=== PATIENT | male | born 1990 | race Caucasian/White ===

== ENCOUNTER 2020-08-19 22:31 | Observation (INO) | payer OTHER ==
[~2020-08-19] VITALS: Ht 177.8 cm; Wt 83.5 kg
[~2020-08-19 22:31] MED LIST: Benadryl 50 mg50 MG PO; Cephalexin250 MG/5 M PO; METPRE4DP PO
[2020-08-19 22:42] LABS: BASOPHILS ABSOLUTE AUTO 0.02 K/mm3 (0.00-0.23); BASOPHILS PERCENT AUTO 0 % (0-2); EOSINOPHILS ABSOLUTE AUTO 0.05 K/mm3 (0.00-0.68); EOSINOPHILS PERCENT AUTO 1 % (0-6); Hematocrit 41.9 % (37.0-53.0); Hemoglobin 14.3 g/dL (13.5-17.5); IMMATURE GRAN ABSOLUTE AUTO 0.01 K/mm3 (0.00-0.10); IMMATURE GRAN PERCENT AUTO 0 % (0-1); LYMPHOCYTES PERCENT AUTO 24 % (21-46); MONOCYTES ABSOLUTE AUTO 0.34 K/mm3 (0.16-1.47); MONOCYTES PERCENT AUTO 5 % (4-13); Mean Corpuscular HGB 31.8 pg (26.0-34.0); Mean Corpuscular HGB Conc 34.1 g/dL (31.5-36.5); Mean Corpuscular Volume 93 fL (80-100); Mean Platelet Volume 8.8 fL (9.1-12.4); NEUTROPHILS ABSOLUTE AUTO 4.36 K/mm3 (1.96-9.15); NEUTROPHILS PERCENT AUTO 69 % (41-73); Platelet Count 214 K/mm3 (150-400); RDW Coefficient Variation 11.9 % (11.7-14.2); RDW Standard Deviation 40.9 fL (35.1-46.3); Red Blood Cell Count 4.49 M/mm3 (4.30-5.90); White Blood Cell Count 6.28 K/mm3 (4.00-11.30)
[2020-08-19 22:52] LABS: PCO2 Arterial 43.4 mmHg (35-45); PO2 Arterial 79.4 mmHg (80-100)
[2020-08-19 23:01] LABS: Alanine Aminotransfer (ALT/SGP 37 U/L (12-78); Albumin, Blood 3.9 g/dL (3.4-5.0); Albumin/Globulin Ratio 1.1 (0.8-1.8); Alk Phos 62 U/L (50-136); Anion Gap 6 mmol/L (6-16); Aspartate Aminotrans (AST/SGOT 35 U/L (12-37); Bilirubin, Total 0.3 mg/dL (0.1-1.0); Blood Urea Nitrogen 9 mg/dL (8-24); Bun/Creatinine Ratio 9.6 (12.0-20.0); CO2, Blood 28 mmol/L (21-32); Calcium, Blood 8.9 mg/dL (8.5-10.1); Chloride, Blood 110 mmol/L (98-108); Creatinine, Blood 0.94 mg/dL (0.60-1.20); Ethanol (Alcohol), Blood, Med 140 mg/dL; Globulin, Blood 3.5 g/dL (2.2-4.0); Glomerular Filtration Rate >60 (60-); Glucose, Blood 90 mg/dL (70-99); Potassium, Blood 4.1 mmol/L (3.5-5.5); Salicylate <1.7 mg/dL (2.8-20.0); Sodium, Blood 144 mmol/L (136-145); Total Protein, Blood 7.4 g/dL (6.4-8.2)
[2020-08-19 23:05] LABS: Acetaminophen, Random <2.0 ug/mL (10.0-30.0)
[2020-08-20] MEDS ORDERED: ESCI10 PO (00:11)
[2020-08-20] MEDS ORDERED: CLON1 PO (00:12)
--- NOTE | 2020-08-20 00:43 | NUR ---
ARRIVAL TO ICU PT ARRIVES FROM ED TO ICU AT 0000. HE IS AWAKE, A/O TO SELF AND PLACE, BUT IS DROWSY AND SLOW TO RESPOND. SPEECH IS SLURRED. PT ATTEMPTED TO STAND FROM ED STRETCHER AND ALMOST FELL. PT HAD VERY SLURRED SPEECH WHEN ASKING QUESTIONS ABOUT HIS MEDICAL HISTORY. DURING SUICIDE ASSESSMENT, PT STATED HE JUST WANTED TO FORGET SOME THINGS THAT ARE GOING ON IN HIS LIFE RIGHT NOW. HE DENIED BEING SUICIDAL AND LAUGHINGLY STATED HE WANTS TO LEAVE. INFORMED PT THAT HE IS ON A 2 MD HOLD AND IS REQUIRED TO STAY HERE; IF HE ATTEMPTS TO LEAVE, THE FIBER ANALYST WILL BE CALLED. PT DISPLAYED UNDERSTANDING AND ROLLED OVER ONTO SIDE AND QUICKLY FELL ASLEEP. MODERATE SUICIDE PRECUATIONS. BEING MONITORED BY CAMERA. MIV LR INFUSING AT 125 ML/HR PER ORDER. PT IN BLUE PAPER SCRUBS. WILL CONTINUE TO MONITOR.
--- NOTE | 2020-08-20 03:36 | NUR ---
REASSESSMENT PT SLEEPING COMFORTABLY AT THIS TIME. HE WAS ABLE TO STAND AND AMBULATE TO TOILET IN ROOM. HAD BOWEL MOVEMENT AND AMBULATED BACK TO BED. HE IS CALM AND COOPERATIVE WHEN AWAKE. MIV LR CONTINUES TO INFUSE. WILL CONTINUE TO MONITOR. VSS.
[2020-08-20 03:51] LABS: Anion Gap 6 mmol/L (6-16); Blood Urea Nitrogen 8 mg/dL (8-24); Bun/Creatinine Ratio 9.1 (12.0-20.0); CO2, Blood 26 mmol/L (21-32); Calcium, Blood 7.9 mg/dL (8.5-10.1); Chloride, Blood 112 mmol/L (98-108); Creatinine, Blood 0.88 mg/dL (0.60-1.20); Glomerular Filtration Rate >60 (60-); Glucose, Blood 79 mg/dL (70-99); Sodium, Blood 144 mmol/L (136-145)
--- NOTE | 2020-08-20 05:57 | NUR ---
SHIFT SUMMARY PT ADMITTED TO ICU AT 0000. SINCE THEN, HE SLEPT ENTIRE SHIFT BUT DID STAND AND AMBULATE TO TOILET X 1 FOR BM AND VOIDING. PT HAS BEEN COOPERATIVE AND COMPLIANT. LR INFUSING AT 125 ML/HR PER ORDER. AFEBRILE. NSR, HR 50-60S. BP WNL. REMAINS ON CAMERA MONITORING FOR MODERATE SUICIDE RISK. WILL GIVE BEDSIDE, HANDOFF REPORT TO DAY RN.
--- NOTE | 2020-08-20 07:13 | NUR ---
Neel is calm, appears to be a bit sleepy, but answers questions appropriately and engages in conversation. States that he doesn't really have any desires to harm himself. States that he just wants to get out of the hosptial and go home. No apparent anxiety or distress. Explained that the plan today would be for him to have a visit from Dr. Moody, the psychiatrist, and from there make a plan for treatment.
--- NOTE | 2020-08-20 07:43 | NUR ---
Dr. Guajardo here to see the patient. Plan is for the pt to be evaluated by Dr. Moody today.
--- NOTE | 2020-08-20 09:53 | NUR ---
Iman Child here to see the patient.
--- NOTE | 2020-08-20 10:37 | NUR ---
Call from Luz at [facility]; pt was willing to talk to the patient, so the call was transferred into the room.
--- NOTE | 2020-08-20 11:13 | NUR ---
Neel awakens easily to gentle quiet conversation, but does not initiate any conversation while awake. Coherent conversation with calm, appropriate answers. Otherwise just keeps his eyes closed and appears to be sleeping in a softly lit room. Did not eat any of his breakfast this morning. Safety plan was reviewed with Iman Child; still waiting on Dr. Moody to see the patient this afternoon.
--- NOTE | 2020-08-20 13:00 | NUR ---
Safety Plan interview 09 in ICU10. Pt very guarded initially but shared information later in interview. Pt is vague regarding occurrences of events leading to taking "2 Xanax and I think a sleeping pill". Pt assumes his father called /EMS, but does not have recollection. Pt had drunk several beers. He has appointment with [facility] psychiatrist Sep.14. He sees Dr. Meyer, and "finally came clean with him about thinking about suicide". Pt prescribed antidepressant 2 weeks ago that gave him hives, but continued chelsie them. Changed to Lexapro 1 week ago--reports he has been taking them. Pt does have nightmares and reports PTSD--reports Prozasin helped with nigmares. Pt has 4 DUIs and and assault charge that he goes to court for sentencing September 21. "Looking at 25-54 months in jail". Left 4 months ago-both lived in [place]. he has 5 year old son. 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 Positive for loss of interest in activities, poor sleep, poor appetite ('did not eat for 6 days, just small bites-didnt feel like it"), no enregy, vague response on thoughts of suicide, but affirmed when discussing his :"coming clean" with Mitch. He alluded to "all the stuff going on" was what ma"may" have led him to taking extra Xanax yesterday. He conveys unrealistic thinking that he just "wants to go home". Pt has sought help to with [employer] worker to go to [facility] in [place], a [facility] treatment center he reports. Due to casual demeanor regarding OD, and conveying all will be well if he goes home, ADMINISTRATIVE REPRESENTATIVE and Coordinator informed to be alert for any patient movement outside of room. Mentioned to patient the availability of dual diagnosis treatment, and explained signs/symptms of depression, combined with history of drinking since adolescense. Pt. may have minimized amount he reported drinking, and RN informed for withdrawal symptom watch. Pt was not interested in details of completing Safetu Plan and RN and Clinical Coordinator informed that if patient is to be dc'd home, pt must state his specific plan for safety. Pt on day 1 of involuntary hold today. Pt denies previous suicide attempts. Iman Child M.Ed., [facility]
--- NOTE | 2020-08-20 13:12 | NUR ---
The pt is alert, more awake and ate 25% of his lunch. Requested use of bathroom and was assisted by BLANCHE Cohen.
--- NOTE | 2020-08-20 14:14 | NUR ---
Neel continues to display little to no interest in eating, watching TV or anything other than lying in bed with his eyes closed. When I checked his IV site and temperature at this time, he asked when the psychiatrist would be in to see him. I explained that Dr. Moody usually comes in the afternoon, so probably at any time now. He said "OK" and closed his eyes again, lying on his side.
--- NOTE | 2020-08-20 14:39 | NUR ---
Dr. Moody here to see the patient.
[2020-08-20] MEDS ORDERED: TRAZ50 PO (15:43)
--- NOTE | 2020-08-20 15:59 | NUR ---
Reviewed discharge instructions with the patient. IV removed. The pt is pleasantly conversant, and smiles occasionally during conversation. He states that he is going home with his Dad, where he is staying right now, and that he feels like he is safe there. States he has an appointment with Dr. Meyer in 6 days.
--- NOTE | 2020-08-20 16:06 | NUR ---
Escorted pt out to the admitting area to check out for discharge home.
== END 2020-08-20 16:07 | disposition home or self-care (01) ==
LOC: ER 22:31 → ICUW 22:32
PROVIDERS: Emergency Medicine; ADMIT Internal Medicine
DX: T44.6X2A Poisoning by alpha-adrenoreceptor antagonists, intentional self-harm, initial encounter (principal); T43.222A Poisoning by selective serotonin reuptake inhibitors, intentional self-harm, initial encounter; G92 Toxic encephalopathy; F32.9 Major depressive disorder, single episode, unspecified; F43.10 Post-traumatic stress disorder, unspecified; F10.10 Alcohol abuse, uncomplicated; F12.10 Cannabis abuse, uncomplicated; Z88.0 Allergy status to penicillin; Z88.8 Allergy status to other drugs, medicaments and biological substances; Z23 Encounter for immunization; Z79.899 Other long term (current) drug therapy
CPT/HCPCS: 36415; 36600; 80048; 80053; 82803; 82947; 85025; 93005; 93010; 96360; 99285-25; G0378; G0480; J7030; J7120

== ENCOUNTER 2020-08-21 22:15 | Observation (INO) | payer OTHER ==
[~2020-08-21] VITALS: Ht 177.8 cm; Wt 86.2 kg
[~2020-08-21 22:15] MED LIST changes: +CLON1 PO; +ESCI10 PO; +TRAZ50 PO
[2020-08-22 12:37] LABS: BASOPHILS ABSOLUTE AUTO 0.02 K/mm3 (0.00-0.23); BASOPHILS PERCENT AUTO 0 % (0-2); EOSINOPHILS ABSOLUTE AUTO 0.18 K/mm3 (0.00-0.68); EOSINOPHILS PERCENT AUTO 3 % (0-6); Hematocrit 44.5 % (37.0-53.0); Hemoglobin 15.4 g/dL (13.5-17.5); IMMATURE GRAN ABSOLUTE AUTO 0.01 K/mm3 (0.00-0.10); IMMATURE GRAN PERCENT AUTO 0 % (0-1); LYMPHOCYTES PERCENT AUTO 28 % (21-46); MONOCYTES ABSOLUTE AUTO 0.36 K/mm3 (0.16-1.47); MONOCYTES PERCENT AUTO 6 % (4-13); Mean Corpuscular HGB 32.2 pg (26.0-34.0); Mean Corpuscular HGB Conc 34.6 g/dL (31.5-36.5); Mean Corpuscular Volume 93 fL (80-100); Mean Platelet Volume 8.8 fL (9.1-12.4); NEUTROPHILS ABSOLUTE AUTO 3.51 K/mm3 (1.96-9.15); NEUTROPHILS PERCENT AUTO 62 % (41-73); Platelet Count 208 K/mm3 (150-400); RDW Coefficient Variation 11.9 % (11.7-14.2); RDW Standard Deviation 40.9 fL (35.1-46.3); Red Blood Cell Count 4.78 M/mm3 (4.30-5.90); White Blood Cell Count 5.68 K/mm3 (4.00-11.30)
[2020-08-22 12:57] LABS: Alanine Aminotransfer (ALT/SGP 34 U/L (12-78); Albumin, Blood 3.9 g/dL (3.4-5.0); Albumin/Globulin Ratio 1.1 (0.8-1.8); Alk Phos 66 U/L (50-136); Anion Gap 1 mmol/L (6-16); Aspartate Aminotrans (AST/SGOT 36 U/L (12-37); Bilirubin, Total 0.6 mg/dL (0.1-1.0); Blood Urea Nitrogen 14 mg/dL (8-24); Bun/Creatinine Ratio 12.2 (12.0-20.0); CO2, Blood 31 mmol/L (21-32); Calcium, Blood 9.2 mg/dL (8.5-10.1); Chloride, Blood 109 mmol/L (98-108); Creatinine, Blood 1.15 mg/dL (0.60-1.20); Globulin, Blood 3.5 g/dL (2.2-4.0); Glomerular Filtration Rate >60 (60-); Glucose, Blood 78 mg/dL (70-99); Potassium, Blood 4.4 mmol/L (3.5-5.5); Sodium, Blood 141 mmol/L (136-145); Total Protein, Blood 7.4 g/dL (6.4-8.2)
[2020-08-22 12:58] LABS: Acetaminophen, Random <2.0 ug/mL (10.0-30.0)
[2020-08-22 21:59] LABS: Source, Urine Clean Catch
[2020-08-22 22:06] LABS: Bilirubin, Urine Neg (Neg); Blood, Urine Neg (Neg); Glucose Qualitative, Urine Neg (Neg); Ketones, Urine Neg (Neg); Leukocyte Esterase, Urine Neg (Neg); Nitrite, Urine Neg (Neg); Protein, Urine Neg (Neg); Specific Gravity, Urine 1.015 (1.003-1.022); Urobilinogen, Urine 1+ (Normal)
[2020-08-22 22:11] LABS: Appearance, Urine Clear (Clear); Color, Urine Yellow (P-Yellow)
[2020-08-22 22:17] LABS: U Amphetamine Screen Not Detected; U Barbituate Screen Not Detected; U Benzodiazapine Screen DETECTED; U Buprenorphine Screen Not Detected; U Cannabinoids Screen DETECTED; U Cocaine Screen Not Detected; U Methadone Screen Not Detected; U Methamphetamine Screen Not Detected; U Opiates Screen Not Detected; U Oxycodone Screen Not Detected; U Phencyclidine Screen Not Detected; U Propoxyphene Screen Not Detected
[2020-08-24] MEDS ORDERED: ZOLP10 PO (13:05)
[2020-08-24] MEDS ORDERED: PRAZ1 PO (13:06)
[2020-08-24] MEDS ORDERED: CLON.5 PO (13:06)
[2020-08-24] MEDS ORDERED: SERT50 (13:06)
[2020-08-24 14:14] LABS: Influenza A, PCR Negative (NEGATIVE); Influenza B, PCR Negative (NEGATIVE); Resp Syncytial Virus, PCR Negative (NEGATIVE); SARS-Cov-2 (COVID-19) PCR, MMC Negative (NEGATIVE)
== END 2020-08-24 17:40 ==
LOC: ER 22:15 → EOR 22:16
PROVIDERS: Emergency Medicine; ADMIT Emergency Medicine
DX: R45.851 Suicidal ideations (principal); Z88.0 Allergy status to penicillin
CPT/HCPCS: 0241U; 36415; 80053; 81003; 85025; 96372; 99285; G0378; G0480; J1200; J1630; Q3014

== ENCOUNTER 2020-09-02 06:19 | Emergency (ER) | payer OTHER ==
[~2020-09-02] VITALS: Ht 177.8 cm; Wt 88.5 kg
[~2020-09-02 06:19] MED LIST changes: +CLON.5 PO; +PRAZ1 PO; +SERT50; +ZOLP10 PO
[2020-09-02] MEDS ORDERED: Seroquel200 MG PO (07:10)
[2020-09-02] MEDS ORDERED: PROP10 PO (07:10)
[2020-09-02] MEDS ORDERED: Neurontin 100100 MG PO (07:10)
[2020-09-02] MEDS ORDERED: Lamictal25 MG PO (07:10)
[2020-09-02] MEDS ORDERED: PRAZ1 PO (07:10)
== END 2020-09-02 07:42 | disposition home or self-care (01) ==
LOC: ER 06:19
DX: F32.9 Major depressive disorder, single episode, unspecified (principal); F43.10 Post-traumatic stress disorder, unspecified; F41.9 Anxiety disorder, unspecified; Z76.0 Encounter for issue of repeat prescription; Z88.0 Allergy status to penicillin; Z79.899 Other long term (current) drug therapy; F17.220 Nicotine dependence, chewing tobacco, uncomplicated
CPT/HCPCS: 99283

== ENCOUNTER 2020-09-10 03:34 | Emergency (ER) | payer OTHER ==
[~2020-09-10] VITALS: Ht 177.8 cm; Wt 83.9 kg
[~2020-09-10 03:34] MED LIST changes: +Lamictal25 MG PO; +Neurontin 100100 MG PO; +PROP10 PO; +Seroquel200 MG PO
== END 2020-09-10 04:56 | disposition home or self-care (01) ==
LOC: ER 03:34
DX: F45.8 Other somatoform disorders (principal); F41.9 Anxiety disorder, unspecified; F32.9 Major depressive disorder, single episode, unspecified; F17.220 Nicotine dependence, chewing tobacco, uncomplicated; Z88.0 Allergy status to penicillin; Z79.899 Other long term (current) drug therapy
CPT/HCPCS: 71046; 93005; 93010; 99283-25

== ENCOUNTER 2023-04-19 16:06 | Emergency (ER) | payer OTHER ==
[~2023-04-19] VITALS: Ht 177.8 cm; Wt 88.5 kg
[2023-04-19 16:13] VITALS: BP 123/79
[2023-04-19 18:08] LABS: BASOPHILS ABSOLUTE AUTO 0.03 K/mm3 (0.00-0.23); BASOPHILS PERCENT AUTO 0 % (0-2); EOSINOPHILS ABSOLUTE AUTO 0.09 K/mm3 (0.00-0.68); EOSINOPHILS PERCENT AUTO 1 % (0-6); Hematocrit 45.1 % (37.0-53.0); IMMATURE GRAN ABSOLUTE AUTO 0.03 K/mm3 (0.00-0.10); IMMATURE GRAN PERCENT AUTO 0 % (0-1); LYMPHOCYTES ABSOLUTE AUTO 0.52 K/mm3 (0.84-5.20); LYMPHOCYTES PERCENT AUTO 5 % (21-46); MONOCYTES ABSOLUTE AUTO 0.53 K/mm3 (0.16-1.47); MONOCYTES PERCENT AUTO 5 % (4-13); Mean Corpuscular HGB 31.9 pg (26.0-34.0); Mean Corpuscular HGB Conc 35.5 g/dL (31.5-36.5); Mean Corpuscular Volume 90 fL (80-100); Mean Platelet Volume 8.7 fL (9.1-12.4); NEUTROPHILS ABSOLUTE AUTO 9.39 K/mm3 (1.96-9.15); NEUTROPHILS PERCENT AUTO 89 % (41-73); Platelet Count 227 K/mm3 (150-400); RDW Coefficient Variation 12.8 % (11.7-14.2); RDW Standard Deviation 41.8 fL (35.1-46.3); Red Blood Cell Count 5.01 M/mm3 (4.30-5.90); White Blood Cell Count 10.59 K/mm3 (4.00-11.30)
[2023-04-19 18:56] LABS: Albumin, Blood 4.1 g/dL (3.4-5.0); Albumin/Globulin Ratio 1.2 (0.8-1.8); Bilirubin, Total 0.7 mg/dL (0.1-1.0); Bun/Creatinine Ratio 24.3 (12.0-20.0); Creatinine, Blood 0.82 mg/dL (0.60-1.20); Globulin, Blood 3.5 g/dL (2.2-4.0); Potassium, Blood 3.9 mmol/L (3.5-5.5); Total Protein, Blood 7.6 g/dL (6.4-8.2)
[2023-04-19] MEDS ORDERED: ONDA4 PO (19:32)
== END 2023-04-19 19:40 | disposition home or self-care (01) ==
LOC: ER 16:06
PROVIDERS: Student in an Organized Health Care Education/Training Program
DX: S06.0X0A Concussion without loss of consciousness, initial encounter (principal); R10.9 Unspecified abdominal pain; V86.59XA Driver of other special all-terrain or other off-road motor vehicle injured in nontraffic accident, initial encounter; Z79.899 Other long term (current) drug therapy; Z88.0 Allergy status to penicillin
CPT/HCPCS: 70450; 72040; 74177; 80053; 85025; 96374-59; 96375; 99284-25; A9270; J1200; J1885; J2765; J7030; Q9967

== ENCOUNTER 2023-11-30 22:35 | Emergency (ER) | payer OTHER ==
[~2023-11-30] VITALS: Ht 180.3 cm; Wt 86.2 kg
[~2023-11-30 22:35] MED LIST changes: +ONDA4 PO
[2023-11-30 22:48] VITALS: BP 138/93
== END 2023-12-01 00:04 | disposition home or self-care (01) ==
LOC: ER 22:35
DX: S91.115A Laceration without foreign body of left lesser toe(s) without damage to nail, initial encounter (principal); W22.09XA Striking against other stationary object, initial encounter; Z88.0 Allergy status to penicillin; Z79.899 Other long term (current) drug therapy
CPT/HCPCS: 12001; 99282-25

== ENCOUNTER 2024-09-19 04:29 | Emergency (ER) | payer OTHER ==
[~2024-09-19] VITALS: Ht 177.8 cm; Wt 83.9 kg
[2024-09-19] MEDS ORDERED: Ketorolac Tromethamine 30mg Vial IM ONE (05:35)
[2024-09-19] MEDS ORDERED: Diazepam 5 MG Tab PO ONE (05:35)
[2024-09-19 06:00] VITALS: BP 128/73
== END 2024-09-19 06:05 | disposition home or self-care (01) ==
LOC: ER 04:29
DX: M24.412 Recurrent dislocation, left shoulder (principal); Z79.899 Other long term (current) drug therapy; Z88.0 Allergy status to penicillin
CPT/HCPCS: 73030; 96372; 99283-25; A9270; J1885

== ENCOUNTER → 2024-10-31 | Outpatient (CLI) | payer OTHER ==
[2024-10-31 16:29] LABS: BASOPHILS ABSOLUTE AUTO 0.03 K/mm3 (0.00-0.23); BASOPHILS PERCENT AUTO 1 % (0-2); EOSINOPHILS ABSOLUTE AUTO 0.03 K/mm3 (0.00-0.68); EOSINOPHILS PERCENT AUTO 1 % (0-6); Hematocrit 43.2 % (37.0-53.0); Hemoglobin 15.3 g/dL (13.5-17.5); IMMATURE GRAN ABSOLUTE AUTO 0.02 K/mm3 (0.00-0.10); IMMATURE GRAN PERCENT AUTO 0 % (0-1); LYMPHOCYTES ABSOLUTE AUTO 1.12 K/mm3 (0.84-5.20); LYMPHOCYTES PERCENT AUTO 18 % (21-46); MONOCYTES PERCENT AUTO 6 % (4-13); Mean Corpuscular HGB 31.4 pg (26.0-34.0); Mean Corpuscular HGB Conc 35.4 g/dL (31.5-36.5); Mean Corpuscular Volume 89 fL (80-100); Mean Platelet Volume 8.6 fL (9.1-12.4); NEUTROPHILS ABSOLUTE AUTO 4.79 K/mm3 (1.96-9.15); NEUTROPHILS PERCENT AUTO 75 % (41-73); Platelet Count 211 K/mm3 (150-400); RDW Standard Deviation 42.1 fL (35.1-46.3); Red Blood Cell Count 4.87 M/mm3 (4.30-5.90); White Blood Cell Count 6.39 K/mm3 (4.00-11.30)
[2024-10-31 16:38] LABS: Albumin, Blood 4.7 g/dL (3.4-5.0); Albumin/Globulin Ratio 1.4 (0.8-1.8); Bilirubin, Total 0.9 mg/dL (0.1-1.0); Bun/Creatinine Ratio 16.8 (12.0-20.0); Calcium, Blood 9.4 mg/dL (8.5-10.1); Creatinine, Blood 1.19 mg/dL (0.60-1.20); Globulin, Blood 3.4 g/dL (2.2-4.0); Potassium, Blood 4.5 mmol/L (3.5-5.5); Total Protein, Blood 8.1 g/dL (6.4-8.2)
[2024-11-01 13:38] LABS: Chlamydia Trachomatis Urine NOT DETECTED (NOT DETECT); Neisseria Gonorrhoea Urine NOT DETECTED (NOT DETECT)
== END | disposition home or self-care (01) ==
LOC: LAB 16:24 → LAB SHORT 16:24
PROVIDERS: Physician Assistant
DX: R11.2 Nausea with vomiting, unspecified (principal)
CPT/HCPCS: 80053; 85025; 87491; 87591

== ENCOUNTER 2025-08-20 21:37 | Emergency (ER) | payer SELFPAY ==
[~2025-08-20] VITALS: Ht 180.3 cm; Wt 72.6 kg
[2025-08-20 21:44] VITALS: BP 146/88
== END 2025-08-20 21:48 ==
LOC: ER 21:37
DX: T75.4XXA Electrocution, initial encounter (principal); Y35.839A Legal intervention involving a conducted energy device, unspecified person injured, initial encounter; Z59.89 Other problems related to housing and economic circumstances
CPT/HCPCS: 99282